=== PATIENT | male | born 1990 | race Caucasian/White ===

== ENCOUNTER 2020-01-23 16:34 | Emergency (ER) | payer MEDICAID ==
[~2020-01-23] VITALS: Ht 175.3 cm; Wt 85.0 kg
[~2020-01-23 16:34] MED LIST: IBUPROFEN PO; NO HOME MEDS
[2020-01-23 17:16] VITALS: BP 130/88
--- NOTE | 2020-01-23 17:30 | NUR ---
Pt LWOBS and states he will come back another time. Amb from ER with steady gait in NAD.
== END 2020-01-23 17:31 | disposition left against medical advice (07) ==
LOC: ER 16:34
DX: Z00.00 Encounter for general adult medical examination without abnormal findings (principal); Z53.21 Procedure and treatment not carried out due to patient leaving prior to being seen by health care provider

== ENCOUNTER 2020-01-25 07:09 | Emergency (ER) | payer MEDICAID ==
[~2020-01-25] VITALS: Ht 172.7 cm; Wt 85.0 kg
[2020-01-25 07:14] VITALS: BP 153/90
== END 2020-01-25 07:58 | disposition home or self-care (01) ==
LOC: ER 07:10
DX: Z02.89 Encounter for other administrative examinations (principal); Z59.0 Homelessness; F10.10 Alcohol abuse, uncomplicated
CPT/HCPCS: 99281

== ENCOUNTER 2020-01-31 11:01 | Emergency (ER) | payer MEDICAID ==
--- NOTE | 2020-01-31 11:17 | NUR ---
PT WAS CALLED TO TRIAGE AND DECIDED TO WAIT AND BE SEEN TOMORROW FOR A MEDICAL CLEARANCE TO EMPIRE.
== END 2020-01-31 11:19 | disposition left against medical advice (07) ==
LOC: ER 11:02
DX: Z00.00 Encounter for general adult medical examination without abnormal findings (principal); Z53.21 Procedure and treatment not carried out due to patient leaving prior to being seen by health care provider

== ENCOUNTER 2020-02-28 18:03 | Emergency (ER) | payer MEDICAID ==
[~2020-02-28] VITALS: Ht 172.7 cm; Wt 81.8 kg
[2020-02-28 18:15] VITALS: BP 141/82
== END 2020-02-28 19:00 | disposition home or self-care (01) ==
LOC: ER 18:04
DX: R00.2 Palpitations (principal); Z72.89 Other problems related to lifestyle; Z59.0 Homelessness; Z79.899 Other long term (current) drug therapy
CPT/HCPCS: 71045; 93005; 99284

== ENCOUNTER 2021-05-31 22:24 | Emergency (ER) | payer MEDICAID ==
[~2021-05-31] VITALS: Ht 172.7 cm; Wt 84.1 kg
[2021-05-31 22:38] VITALS: BP 138/94
== END 2021-05-31 22:57 ==
LOC: ER 22:25
DX: Z02.89 Encounter for other administrative examinations (principal); F11.23 Opioid dependence with withdrawal; Z72.89 Other problems related to lifestyle; Z59.0 Homelessness; Z79.899 Other long term (current) drug therapy
CPT/HCPCS: 99283

== ENCOUNTER 2025-10-27 02:42 | Emergency (ER) | payer MEDICAID ==
[~2025-10-27] VITALS: Ht 172.7 cm; Wt 99.7 kg
[2025-10-27 02:43] VITALS: BP 153/98; PULSE 106; RESP 18; TEMP 98; O2SAT 100
--- NOTE | 2025-10-27 02:53 | ELECTROCARDIOGRAPH REPORT ---
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 Lavon Brady Measurements Intervals [place] Rate: 111 P: 53 NV: 135 QRS: 60 QRSD: 105 T: -6 QT: 340 QTc: 462 Interpretive Statements Sinus tachycardia Probable anteroseptal infarct, old Electronically Signed On 10-27-2025 7:35:[address] Lavon Brady Please click the below link to view image of tracing.
--- NOTE | 2025-10-27 03:09 | RADIOLOGY REPORT ---
CHEST RADIOGRAPH INDICATION: CP TECHNIQUE: Single frontal view of the chest was obtained COMPARISON: None FINDINGS: Lines and Tubes: None Lungs: There is an opacity in the left lower lung zone. Pleura: No effusion. No pneumothorax. Cardiomediastinal contours: Unremarkable Bones: No acute osseous abnormality. IMPRESSION: 1. Left lower lung zone opacity which may reflect pneumonia in the appropriate clinical setting.
[2025-10-27 03:26] LABS: MEAN PLATELET VOLUME 7.6 FL (7.4-10.4); RED CELL DISTRIBUTION WIDTH 13.4 % (11.5-14.5)
[2025-10-27 03:40] LABS: CREATININE 0.95 MG/DL (0.60-1.10); PRO BRAIN NATRIURETIC PEPTIDE < 30 PG/ML (0-125); TOTAL CARBON DIOXIDE 28.8 MMOL/L (24-32); eCRCL 106 ML/MIN; eGFR > 90 ML/MIN
== END 2025-10-27 05:14 | disposition left against medical advice (07) ==
LOC: ER 02:42
DX: R00.2 Palpitations (principal); R07.9 Chest pain, unspecified
CPT/HCPCS: 36415; 71045; 80048; 83880; 84484; 85025; 93005; 99281; 99282

== ENCOUNTER 2025-10-27 07:17 | Emergency (ER) | payer MEDICAID ==
[~2025-10-27] VITALS: Ht 172.7 cm; Wt 99.7 kg
[2025-10-27 07:27] VITALS: BP 139/80; PULSE 105; O2SAT 95
[2025-10-27 07:34] VITALS: RESP 16
--- NOTE | 2025-10-27 08:58 | Physician Documentation ---
History of Present Illness ~ Chief Complaint: Chest Pain Stated Complaint: RECHECK LIGHTHEADED Time Seen by MD: 08:50 OK to notify your PCP?: Yes Primary Medical Doctor: none Source: patient, RN/MD, RN notes reviewed, old records Mode of Arrival: POV, Ambulatory Exam Limitations: no limitations HPI This patient was seen earlier today but eloped had labs x-ray shows possible pneumonia patient is coughing some yellow phlegm. Denies any shortness of breath. Patient also has a history of anxiety and does not like staying in one location for a long period of time. Additionally the patient was complaining of chest pain is mostly pleuritic in nature. He denies any fevers or chills at this time. Medication Reconciliation Allergies: Coded Allergies: No Known Allergies (Unverified , 10/27/25) Scheduled PRN [Ibuprofen], 600 MG PO Q6H PRN for pain Miscellaneous Medications Home Med List (No Home Medications), (Reported) Past Medical History Past Medical History: No Pertinent History Past Surgical History: no surgical history Alcohol Use: Occasionally Drug Use: heroin Lives In: Homeless Review of Systems All Other Systems at this time: Reviewed and Negative Physical Exam Vital Signs: RN Vital Signs have been reviewed: Yes, Temperature: 97.7, Heart Rate: 105, Respiratory Rate: 16, BP: 139/80, Pulse Oximetry: 95, Weight: 99.700 Physical Exam General: The patient is well developed, well nourished, nontoxic appearing and is in no acute distress. Skin: [place], warm and dry with no rashes. HEENT: Head was normocephalic and atraumatic. Eyes - pupils equal, round, reactive to light and accommodation. Extraocular movements were intact. Conjunctivae were nonicteric. The mouth and oropharynx were clear with moist mucous membranes. Neck: Supple and nontender. There was no jugular venous distention Chest: Clear to auscultation bilaterally without wheezes, rales or rhonchi. Heart: Rate regular and rhythmic. S1, S2. No murmurs. Abdomen: Soft, nontender and nondistended. Positive bowel sounds. Extremities: No cyanosis, clubbing or edema. The patient moves all extremities. Pulses were equal and symmetric. Neurologic: Motor sensory grossly intactThe note accurately reflects work and decisions made by me.Lavon Boles MD 10/27/25 09:07 Psychologic: The patient was oriented to person, place and time. The patient demonstrated appropriate judgement and insight. Progress Results/Orders Reviewed/noted all lab results: Yes Results/Orders Vital Signs 10/27/25 10/27/25 10/27/25 07:27 07:34 09:09 Temp 97.7 97.7 Pulse 105 Resp 16 16 B/P (MAP) 139/80 Pulse Ox 95 Re-Evaluation Re-Evaluation : Re-Evaluation: Unchanged Progress Patient is did not want to stay and refused treatment Heart Score: Heart Score Response (Comments) Value History Slightly Suspicious 0 EKG N/A 0 Age <45 0 Risk Factors 1 or 2 risk factors 1 Troponin N/A 0 Total 1 Medical Decision Making Additional information obtaine: old records Findings Patient complaining of chest pain. Patient has a history of anxiety disorder. Patient did not want to stay for any testing including in the EKG. Repeat exam was performed did not have an opportunity to order any medications or laboratory work including an EKG because the patient decided to leave. Discharge instructions were given he was encouraged to follow up with his primary care physician. Heart Score: 1 Differential Dx:Considerations: Include: angina, aortic dissection, chest wall pain, cholelithiasis, CHF, costochondritis, esophageal reflux/spasm, gastritis, herpes zoster, myocardial infarction, pericarditis, pleuritis, pancreatitis, pneumonia, pneumothorax, pulmonary embolus, other Departure Disposition: 01 HOME / SELF CARE / HOMELESS Impression: Primary Impression: Chest pain Additional Impression: Anxiety Condition: Stable Discharge Instructions: Nonspecific Chest Pain, Adult Referrals: NO PRIMARY CARE PROVIDER (PCP) Education Educated: Patient Educated regarding: diagnosis Signature Scribe Signature: No scribed Attestation: The note accurately reflects work and decisions made by me.Lavon Boles MD 10/31/25 22:32 LAVON BOLES MD Oct 27, 2025 08:58
[2025-10-27 09:09] VITALS: TEMP 97.7
== END 2025-10-27 09:10 | disposition left against medical advice (07) ==
LOC: ER 07:18
DX: R07.9 Chest pain, unspecified (principal); F41.9 Anxiety disorder, unspecified; F11.90 Opioid use, unspecified, uncomplicated; Z72.89 Other problems related to lifestyle; Z59.00 Homelessness unspecified
CPT/HCPCS: 99282